=== PATIENT | male | born 1980 | race African-American/Black ===

== ENCOUNTER 2025-03-02 06:19 | Emergency (ER) | payer MEDICAID, OTHER ==
[~2025-03-02] VITALS: Ht 193 cm; Wt 110.0 kg
[2025-03-02 06:31] VITALS: O2SAT 99
[2025-03-02 08:16] LABS: BASOPHILS % 0.6 % (0.0-2.0); EOSINOPHILS % 2.3 % (0.0-5.0); HEMATOCRIT. 40.5 % (42.0-52.0); HEMOGLOBIN. 13.4 g/dL (14.0-18.0); LYMPHOCYTES % 22.6 % (20.0-50.0); MEAN PLATELET VOLUME 7.7 fl (7.4-10.4); MONOCYTES % 6.8 % (2.0-8.0); NEUTROPHILS % 67.7 % (40.0-76.0); PLATELET 198 x1000/uL (130-400); RED BLOOD CELL COUNT 5.13 mill/uL (4.7-6.1); RED CELL DISTRIBUTION WIDTH 13.1 % (11.6-14.6)
[2025-03-02 08:24] LABS: *AMPHETAMINES SCREEN URINE PRESUMPTIVE POSITIVE (NEGATIVE); *BARBITURATES SCREEN URINE NEGATIVE (NEGATIVE); *BENZODIAZEPINES SCREEN URINE NEGATIVE (NEGATIVE); *COCAINE SCREEN URINE NEGATIVE (NEGATIVE); METHADONE URINE SCREEN NEGATIVE (NEGATIVE)
[2025-03-02 08:25] LABS: CANNABINOID URINE SCREEN PRESUMPTIVE POSITIVE (NEGATIVE); ECSTASY MDMA SCREEN URINE NEGATIVE (NEGATIVE); OPIATES URINE SCREEN NEGATIVE (NEGATIVE); PHENCYCLIDINE URINE SCREEN NEGATIVE (NEGATIVE)
[2025-03-02 08:29] LABS: CREATININE 1.0 mg/dL (0.6-1.3); UREA NITROGEN BLOOD 5 mg/dL (9-23)
[2025-03-02 08:30] LABS: ETHANOL BLOOD < 10 mg/dL (<10)
[2025-03-02 08:31] LABS: ASPARTATE AMINOTRANSFERASE 37 IU/L (<34); BILIRUBIN DIRECT 0.2 mg/dL (<=3.0); BILIRUBIN TOTAL 0.6 mg/dL (0.1-1.0)
[2025-03-02 08:32] LABS: PROTEIN TOTAL 6.6 g/dL (6.0-8.3)
[2025-03-02 09:00] VITALS: BP 147/99; PULSE 77; RESP 16; TEMP 37; O2SAT 96
== END 2025-03-02 12:30 | disposition left against medical advice (07) ==
LOC: ER 06:19
DX: F12.90 Cannabis use, unspecified, uncomplicated (principal); T43.591A Poisoning by other antipsychotics and neuroleptics, accidental (unintentional), initial encounter; F15.90 Other stimulant use, unspecified, uncomplicated; Z59.00 Homelessness unspecified; F25.9 Schizoaffective disorder, unspecified; F17.200 Nicotine dependence, unspecified, uncomplicated; Z79.899 Other long term (current) drug therapy; Z20.822 Contact with and (suspected) exposure to COVID-19; Z59.86 Financial insecurity; Y92.89 Other specified places as the place of occurrence of the external cause
CPT/HCPCS: 99291; 87426; 80076; 80048; 80307; 83735; 85025; 36415; 93005; G0480; 80305; 80320; 80329

== ENCOUNTER 2025-06-19 22:41 | Emergency (ER) | payer OTHER, MEDICAID ==
[~2025-06-19] VITALS: Ht 200.7 cm; Wt 143.0 kg
[2025-06-19 22:51] VITALS: BP 129/74; PULSE 103; RESP 18; TEMP 98.7; O2SAT 98
== END 2025-06-19 23:03 ==
LOC: ER 22:45
DX: R07.9 Chest pain, unspecified (principal)
CPT/HCPCS: 93005; 99283